=== PATIENT | male | born 1950 | race African-American/Black ===

== ENCOUNTER 2017-11-23 18:00 | Emergency (ER) | payer SELFPAY ==
[~2017-11-23] VITALS: Ht 177.8 cm; Wt 79.0 kg
[2017-11-23] MEDS ORDERED: SODIUM CHLORIDE 0.9% 1,000 ML IV ONE ×2 (18:44→19:54)
[2017-11-23 19:25] LABS: BASOPHILS % 0.4 % (0.0-2.0); HEMATOCRIT. 41.1 % (42.0-52.0); LYMPHOCYTES % 17.8 % (20.0-50.0); MEAN CORPUSCULAR HEMOGLOBIN 30.4 pg (28.0-32.0); MEAN PLATELET VOLUME 8.2 fl (7.4-10.4); MONOCYTES % 8.1 % (2.0-8.0); NEUTROPHILS % 72.7 % (40.0-76.0); PLATELET 203 x1000/uL (130-400); RED BLOOD CELL COUNT 4.62 mill/uL (4.7-6.1)
[2017-11-23 19:31] LABS: PROTHROMBIN TIME 10.3 sec (9.1-11.1)
[2017-11-23 19:33] LABS: CHLORIDE 104 mEq/L (98-107)
[2017-11-23 19:41] LABS: ETHANOL BLOOD < 10 mg/dL
[2017-11-23] MEDS ORDERED: ASPIRIN 325MG TABLET PO ONE (20:00)
[2017-11-23 21:59] VITALS: BP 113/69
[2017-11-23] MEDS ORDERED: SODIUM CHLORIDE 0.9% 1,000 ML IV SCH (23:57)
[2017-11-24] MEDS ORDERED: ACETAMINOPHEN 325MG TABLET PO PRN
[2017-11-24] MEDS ORDERED: GUAIFENESIN 200MG/10ML SUGAR FREE UDC PO PRN
[2017-11-24] MEDS ORDERED: NA PHOS,M-B/NA PHOS,DI-BA ENEMA 118ML PR PRN
[2017-11-24] MEDS ORDERED: HYDROCODONE/ACETAMINOPHEN 5/325MG TABLET PO PRN
[2017-11-24] MEDS ORDERED: CLONIDINE 0.1MG TABLET PO PRN
[2017-11-24] MEDS ORDERED: ONDANSETRON HCL 4MG/2ML VIAL IV PRN
[2017-11-24] MEDS ORDERED: ACETAMINOPHEN 650MG/20.3ML UDC GT PRN
[2017-11-24] MEDS ORDERED: ACETAMINOPHEN 650MG SUPP PR PRN
[2017-11-24] MEDS ORDERED: DIPHENHYDRAMINE 50MG/ML VIAL IV PRN
[2017-11-24] MEDS ORDERED: IPRATROPIUM/ALBUTEROL 0.5-3(2.5)MG/3ML NEB INH PRN
[2017-11-24] MEDS ORDERED: DOCUSATE SODIUM 100MG CAPSULE PO PRN
[2017-11-24] MEDS ORDERED: MAGNESIUM/ALUMINUM HYDROXIDE/SIMETHICONE 30ML UDC PO PRN ×2
[2017-11-24] MEDS ORDERED: SODIUM CHLORIDE 0.9% INJ 3ML FLUSH IVF SCH (06:00)
== END 2017-11-23 22:05 | disposition left against medical advice (07) ==
LOC: ER 18:00 → EDBEDREQ 20:08 → EDBEDREQTM 20:08 → ENRESERV 20:47 → ER 22:05 → CANBEDREQ 11-24 11:38
DX: E86.0 Dehydration (principal); R55 Syncope and collapse; I24.9 Acute ischemic heart disease, unspecified; I25.10 Atherosclerotic heart disease of native coronary artery without angina pectoris; I10 Essential (primary) hypertension; F17.200 Nicotine dependence, unspecified, uncomplicated; Z95.5 Presence of coronary angioplasty implant and graft
CPT/HCPCS: 36415; 70450; 71045; 80053; 80061; 82962; 83036; 83605; 84484; 85025; 85610; 86850; 86900; 86901; 93005; 99285; G0482; J7030; Z7610

== ENCOUNTER 2018-03-31 04:54 | Inpatient (IN) | payer MEDICARE ==
[~2018-03-31] VITALS: Ht 180.3 cm; Wt 69.9 kg
[2018-03-31] MEDS ORDERED: ALBUTEROL (0.083%) 2.5MG/3ML NEB HHN STA (05:00)
[2018-03-31] MEDS ORDERED: METHYLPREDNISOLONE SOD SUCC 125 MG/2 ML VIAL IV STA (05:00)
[2018-03-31] MEDS ORDERED: IPRATROPIUM BROMIDE (0.02%) 0.5MG/2.5ML NEB HHN STA (05:00)
[2018-03-31] MEDS ORDERED: AZITHROMYCIN 500 MG in DEXT 5% WATER 250 ML IV SCH (05:45)
[2018-03-31] MEDS ORDERED: CEFTRIAXONE 1 G PREMIX 50 ML IV ONE (05:45)
[2018-03-31 05:54] LABS: HEMATOCRIT 44.9 % (42.0-52.0); HEMOGLOBIN 15.1 g/dL (14.0-18.0); MEAN CORPUSCULAR HEMOGLOBIN 30.1 pg (28.0-32.0); MEAN CORPUSCULAR VOLUME 89.5 fL (80.0-94.0); PLATELET 269 x1000/uL (130-400); RED BLOOD CELL COUNT 5.01 mill/uL (4.7-6.1)
[2018-03-31 06:50] LABS: CHLORIDE 109 mEq/L (98-107)
[2018-03-31 15:27] VITALS: BP 158/115
[2018-03-31] MEDS ORDERED: AMLO5TAB88 MT (15:45)
[2018-03-31] MEDS ORDERED: ONDANSETRON HCL 4MG/2ML INJ IV PRN (16:15)
[2018-03-31] MEDS ORDERED: ACETAMINOPHEN 325MG TABLET PO PRN (16:15)
[2018-03-31] MEDS ORDERED: NITROGLYCERIN 0.4MG TABLET SL SL PRN (16:15)
[2018-03-31] MEDS ORDERED: MAGNESIUM/ALUMINUM HYDROXIDE/SIMETHICONE 30ML UDC PO PRN (16:15)
[2018-03-31] MEDS ORDERED: GUAIFENESIN 200MG/10ML SUGAR FREE UDC PO PRN (16:15)
[2018-03-31] MEDS ORDERED: LORAZEPAM 0.5MG TABLET PO PRN (16:15)
[2018-03-31] MEDS ORDERED: IPRATROPIUM/ALBUTEROL 0.5-3(2.5)MG/3ML NEB INH PRN (16:15)
[2018-03-31] MEDS ORDERED: KETOROLAC 15MG/ML VIAL IV PRN (16:27)
[2018-03-31] MEDS ORDERED: TRAMADOL 50MG TABLET PO PRN (16:30)
[2018-03-31] MEDS: CARVEDILOL 3.125 MG TABLET PO SCH (17:44)
[2018-03-31] MEDS: ENOXAPARIN 40MG/0.4ML SYR SUBCUT SCH (17:45)
[2018-03-31 20:00] VITALS: BP 157/115
[2018-03-31] MEDS: ASCORBIC ACID 500 MG TABLET PO SCH (20:59)
[2018-03-31] MEDS: FAMOTIDINE 20MG TABLET PO SCH (20:59)
[2018-03-31] MEDS: GUAIFENESIN/DM 600MG/30MG ER TAB 12HR PO SCH (20:59)
[2018-03-31] MEDS ORDERED: NA PHOS,M-B/NA PHOS,DI-BA ENEMA 118ML PR PRN (21:00)
[2018-03-31] MEDS ORDERED: ZOLPIDEM TARTRATE 5MG TABLET PO PRN (21:00)
[2018-03-31] MEDS: CLONIDINE 0.1MG TABLET PO PRN (21:00)
[2018-04-01] VITALS (10 sets, daily range): BP systolic 130–156; BP diastolic 68–126
[2018-04-01] MEDS: CEFTRIAXONE 1 G PREMIX 50 ML IV SCH (05:10)
[2018-04-01] MEDS: CLONIDINE 0.1MG TABLET PO PRN ×2 (05:10→12:53)
[2018-04-01] MEDS: CARVEDILOL 3.125 MG TABLET PO SCH ×2 (06:12→17:37)
[2018-04-01 06:39] LABS: CREATINE KINASE MB FRACTION 1.9 ng/mL (0.5-3.6)
[2018-04-01] MEDS ORDERED: AZITHROMYCIN 500 MG in DEXT 5% WATER 250 ML IV SCH (07:00)
[2018-04-01] MEDS: IPRATROPIUM/ALBUTEROL 0.5-3(2.5)MG/3ML NEB HHN SCH ×4 (08:38→21:12)
[2018-04-01] MEDS: ASCORBIC ACID 500 MG TABLET PO SCH ×2 (08:57→20:45)
[2018-04-01] MEDS: GUAIFENESIN/DM 600MG/30MG ER TAB 12HR PO SCH ×2 (08:57→20:45)
[2018-04-01] MEDS: FAMOTIDINE 20MG TABLET PO SCH (08:57)
[2018-04-01] MEDS: ZINC SULFATE 220 MG ( 50 ) CAPSULE PO SCH (08:57)
[2018-04-01] MEDS: ASPIRIN 325MG EC TABLET PO SCH (08:57)
[2018-04-01] MEDS ORDERED: CEFTRIAXONE 1 G PREMIX 50 ML IV SCH (09:00)
[2018-04-01] MEDS ORDERED: POTASSIUM CHLORIDE 20MEQ TABLET SR PO SCH (12:45)
[2018-04-01] MEDS: AMLODIPINE 2.5MG TABLET PO SCH ×2 (13:05→20:45)
[2018-04-01] MEDS: LOSARTAN POTASSIUM 25 MG TABLET PO SCH (13:05)
[2018-04-01] MEDS: FUROSEMIDE 40MG/4ML VIAL IVP SCH ×2 (13:05→20:45)
[2018-04-01] MEDS: ENOXAPARIN 40MG/0.4ML SYR SUBCUT SCH (18:00)
[2018-04-01 18:25] LABS: *AMPHETAMINES SCREEN URINE NEGATIVE (NEGATIVE); *BARBITURATES SCREEN URINE NEGATIVE (NEGATIVE); *BENZODIAZEPINES SCREEN URINE NEGATIVE (NEGATIVE); *COCAINE SCREEN URINE NEGATIVE (NEGATIVE); CANNABINOID URINE SCREEN NEGATIVE (NEGATIVE); OPIATES URINE SCREEN NEGATIVE (NEGATIVE); PHENCYCLIDINE URINE SCREEN NEGATIVE (NEGATIVE)
[2018-04-01 18:26] LABS: METHADONE URINE SCREEN NEGATIVE (NEGATIVE)
[2018-04-01 20:49] LABS: HEPATITIS B SURFACE ANTIGEN NEGATIVE
[2018-04-01] MEDS: BUDESONIDE 0.5MG/2ML NEB HHN SCH (21:11)
[2018-04-01 21:18] LABS: HEPATITIS A AB IGM NEGATIVE (NEGATIVE)
[2018-04-02] VITALS (7 sets, daily range): BP systolic 115–150; BP diastolic 95–106
[2018-04-02] MEDS: CLONIDINE 0.1MG TABLET PO PRN ×2 (00:28→06:41)
[2018-04-02] MEDS: IPRATROPIUM/ALBUTEROL 0.5-3(2.5)MG/3ML NEB HHN SCH ×6 (01:45→20:46)
[2018-04-02] MEDS: CARVEDILOL 3.125 MG TABLET PO SCH ×2 (05:11→17:31)
[2018-04-02] MEDS: CEFTRIAXONE 1 G PREMIX 50 ML IV SCH (05:11)
[2018-04-02] MEDS: AZITHROMYCIN 500 MG in DEXT 5% WATER 250 ML IV SCH (06:03)
[2018-04-02 07:41] LABS: BASOPHILS % 0.5 % (0.0-2.0); EOSINOPHILS % 1.5 % (0.0-5.0); HEMATOCRIT. 41.1 % (42.0-52.0); HEMOGLOBIN. 13.8 g/dL (14.0-18.0); LYMPHOCYTES % 36.8 % (20.0-50.0); MEAN CORPUSCULAR HEMOGLOBIN 29.7 pg (28.0-32.0); MEAN CORPUSCULAR VOLUME 88.7 fL (80.0-94.0); MONOCYTES % 6.5 % (2.0-8.0); NEUTROPHILS % 54.7 % (40.0-76.0); PLATELET 185 x1000/uL (130-400); RED BLOOD CELL COUNT 4.64 mill/uL (4.7-6.1); RED CELL DISTRIBUTION WIDTH 13.8 % (11.6-14.6)
[2018-04-02 07:54] LABS: CHLORIDE 111 mEq/L (98-107)
[2018-04-02 08:06] LABS: CREATINE KINASE 92 IU/L (39-308); CREATINE KINASE MB FRACTION 1.8 ng/mL (0.5-3.6); LDL CHOLESTEROL 91 mg/dL (5-100)
[2018-04-02 08:07] LABS: HDL CHOLESTEROL 55 mg/dL (40-59)
[2018-04-02] MEDS: BUDESONIDE 0.5MG/2ML NEB HHN SCH ×2 (08:55→20:51)
[2018-04-02] MEDS: FUROSEMIDE 40MG/4ML VIAL IVP SCH ×2 (09:43→17:31)
[2018-04-02] MEDS: ZINC SULFATE 220 MG ( 50 ) CAPSULE PO SCH (13:20)
[2018-04-02] MEDS: ASPIRIN 325MG EC TABLET PO SCH (13:21)
[2018-04-02] MEDS: AMLODIPINE 2.5MG TABLET PO SCH ×2 (13:21→20:02)
[2018-04-02] MEDS: FAMOTIDINE 20MG TABLET PO SCH (13:21)
[2018-04-02] MEDS: GUAIFENESIN/DM 600MG/30MG ER TAB 12HR PO SCH ×2 (13:21→20:02)
[2018-04-02] MEDS: LOSARTAN POTASSIUM 25 MG TABLET PO SCH (13:21)
[2018-04-02] MEDS: ASCORBIC ACID 500 MG TABLET PO SCH ×2 (13:21→20:01)
[2018-04-02] MEDS ORDERED: POTASSIUM CHLORIDE 20MEQ TABLET SR PO NR (14:30)
[2018-04-02] MEDS: ENOXAPARIN 40MG/0.4ML SYR SUBCUT SCH (17:55)
[2018-04-02] MEDS ORDERED: DIATR MEGLU/DIATRIZOATE SOLN 30ML PO SCH (19:00)
[2018-04-03] VITALS: BP 112/80
[2018-04-03] MEDS: IPRATROPIUM/ALBUTEROL 0.5-3(2.5)MG/3ML NEB HHN SCH ×6 (00:58→20:27)
[2018-04-03 04:00] VITALS: BP 132/85
[2018-04-03 05:54] LABS: BASOPHILS % 0.6 % (0.0-2.0); HEMATOCRIT. 41.2 % (42.0-52.0); HEMOGLOBIN. 13.8 g/dL (14.0-18.0); LYMPHOCYTES % 39.3 % (20.0-50.0); MEAN CORPUSCULAR HEMOGLOBIN 29.8 pg (28.0-32.0); MEAN CORPUSCULAR VOLUME 88.7 fL (80.0-94.0); MEAN PLATELET VOLUME 10.2 fl (7.4-10.4); MONOCYTES % 6.7 % (2.0-8.0); NEUTROPHILS % 51.4 % (40.0-76.0); PLATELET 190 x1000/uL (130-400); RED BLOOD CELL COUNT 4.64 mill/uL (4.7-6.1); RED CELL DISTRIBUTION WIDTH 13.6 % (11.6-14.6)
[2018-04-03 06:15] LABS: CHLORIDE 110 mEq/L (98-107)
[2018-04-03 06:22] LABS: PHOSPHORUS 3.8 mg/dL (2.5-4.9)
[2018-04-03 06:24] LABS: CREATINE KINASE 74 IU/L (39-308)
[2018-04-03 06:29] LABS: CREATINE KINASE MB FRACTION < 1.0 ng/mL (0.5-3.6)
[2018-04-03] MEDS: CEFTRIAXONE 1 G PREMIX 50 ML IV SCH (06:32)
[2018-04-03] MEDS: AZITHROMYCIN 500 MG in DEXT 5% WATER 250 ML IV SCH (06:32)
[2018-04-03] MEDS: CARVEDILOL 3.125 MG TABLET PO SCH ×2 (06:33→17:20)
[2018-04-03] MEDS: BUDESONIDE 0.5MG/2ML NEB HHN SCH ×2 (07:36→20:28)
[2018-04-03 08:00] VITALS: BP 103/78
[2018-04-03] MEDS ORDERED: POTASSIUM CHLORIDE 20MEQ TABLET SR PO SCH (09:00)
[2018-04-03] MEDS: ASCORBIC ACID 500 MG TABLET PO SCH ×2 (09:43→21:10)
[2018-04-03] MEDS: ASPIRIN 325MG EC TABLET PO SCH (09:43)
[2018-04-03] MEDS: AMLODIPINE 2.5MG TABLET PO SCH (09:43)
[2018-04-03] MEDS: DOCUSATE SODIUM 100MG CAPSULE PO PRN (09:43)
[2018-04-03] MEDS: ZINC SULFATE 220 MG ( 50 ) CAPSULE PO SCH (09:44)
[2018-04-03] MEDS: FAMOTIDINE 20MG TABLET PO SCH (09:44)
[2018-04-03] MEDS: FUROSEMIDE 40MG/4ML VIAL IVP SCH (09:44)
[2018-04-03] MEDS: GUAIFENESIN/DM 600MG/30MG ER TAB 12HR PO SCH ×2 (09:59→21:10)
[2018-04-03] MEDS ORDERED: POTASSIUM CHLORIDE 20MEQ TABLET SR PO NR (11:00)
[2018-04-03 12:00] VITALS: BP 118/83
[2018-04-03 16:45] VITALS: BP 125/89
[2018-04-03] MEDS: ENOXAPARIN 40MG/0.4ML SYR SUBCUT SCH ×3 (17:20→18:00)
[2018-04-03 20:25] VITALS: BP 149/77
[2018-04-04] VITALS (8 sets, daily range): BP systolic 104–143; BP diastolic 17–105
[2018-04-04] MEDS: IPRATROPIUM/ALBUTEROL 0.5-3(2.5)MG/3ML NEB HHN SCH ×4 (02:00→20:28)
[2018-04-04] MEDS: CEFTRIAXONE 1 G PREMIX 50 ML IV SCH (05:02)
[2018-04-04] MEDS: CARVEDILOL 3.125 MG TABLET PO SCH ×2 (05:04→17:18)
[2018-04-04] MEDS: AZITHROMYCIN 500 MG in DEXT 5% WATER 250 ML IV SCH (06:20)
[2018-04-04 07:11] LABS: BASOPHILS % 0.6 % (0.0-2.0); EOSINOPHILS % 3.4 % (0.0-5.0); HEMATOCRIT. 41.2 % (42.0-52.0); LYMPHOCYTES % 43.6 % (20.0-50.0); MEAN CORPUSCULAR HEMOGLOBIN 30.3 pg (28.0-32.0); MEAN CORPUSCULAR VOLUME 88.9 fL (80.0-94.0); MEAN PLATELET VOLUME 10.2 fl (7.4-10.4); MONOCYTES % 6.7 % (2.0-8.0); NEUTROPHILS % 45.7 % (40.0-76.0); PLATELET 187 x1000/uL (130-400); RED BLOOD CELL COUNT 4.63 mill/uL (4.7-6.1); RED CELL DISTRIBUTION WIDTH 14.1 % (11.6-14.6)
[2018-04-04] MEDS: SODIUM CHLORIDE 0.45% 1,000 ML IV SCH ×2 (08:00→21:20)
[2018-04-04] MEDS: BUDESONIDE 0.5MG/2ML NEB HHN SCH ×2 (08:06→20:28)
[2018-04-04] MEDS ORDERED: AMLODIPINE 2.5MG TABLET PO SCH (09:00)
[2018-04-04] MEDS: FAMOTIDINE 20MG TABLET PO SCH (09:32)
[2018-04-04] MEDS: ZINC SULFATE 220 MG ( 50 ) CAPSULE PO SCH (09:32)
[2018-04-04] MEDS: ASPIRIN 325MG EC TABLET PO SCH (09:32)
[2018-04-04] MEDS: ASCORBIC ACID 500 MG TABLET PO SCH ×2 (09:34→21:29)
[2018-04-04] MEDS: DOCUSATE SODIUM 100MG CAPSULE PO PRN (09:34)
[2018-04-04] MEDS: GUAIFENESIN/DM 600MG/30MG ER TAB 12HR PO SCH ×2 (09:41→21:30)
[2018-04-04] MEDS ORDERED: HEPARIN SODIUM 1,000 UNIT/1ML VIAL IV ONE (11:57)
[2018-04-04] MEDS ORDERED: IODIXANOL 320MG/ML 100 ML BOTTLE IV ONE (12:15)
[2018-04-04] MEDS ORDERED: LIDOCAINE HCL 1% 20ML VIAL (Pyxis) INJ ONE (12:15)
[2018-04-04] MEDS ORDERED: NICARDIPINE 100MCG/ML 10ML VIAL (CATH LAB) IV ONE (12:25)
[2018-04-04] MEDS ORDERED: NITROGLYCERIN 50MCG/ML 10ML VIAL (CATH LAB) IV ONE (12:25)
[2018-04-04] MEDS ORDERED: MIDAZOLAM HCL 2 MG/2 ML VIAL ONE (12:42)
[2018-04-04] MEDS ORDERED: FENTANYL CITRATE/PF 50MCG/ML 2ML VIAL ONE (12:42)
[2018-04-04] MEDS ORDERED: IOHEXOL-300 100 ML BOTTLE ONE (13:01)
[2018-04-04] MEDS ORDERED: CLOPIDOGREL 75MG TABLET ONE (13:15)
[2018-04-04] MEDS ORDERED: SODIUM CHLORIDE 0.45% 1,000 ML IV SCH (13:30)
[2018-04-04] MEDS ORDERED: ACETAMINOPHEN 325MG TABLET PO PRN (13:30)
[2018-04-04] MEDS ORDERED: ATROPINE SULFATE 1MG/10ML SYR IV PRN (13:30)
[2018-04-04] MEDS ORDERED: CLOPIDOGREL 75MG TABLET PO SCH (13:30)
[2018-04-04] MEDS ORDERED: MORPHINE SULFATE 2 MG/ML CPJ (NOT FOR IM USE) IV PRN (13:30)
[2018-04-04] MEDS: ENOXAPARIN 40MG/0.4ML SYR SUBCUT SCH (15:35)
[2018-04-05] VITALS: BP 142/90
[2018-04-05] MEDS: CLONIDINE 0.1MG TABLET PO PRN (00:09)
[2018-04-05] MEDS: IPRATROPIUM/ALBUTEROL 0.5-3(2.5)MG/3ML NEB HHN SCH ×4 (00:33→12:03)
[2018-04-05 02:00] VITALS: BP 128/53
[2018-04-05 04:00] VITALS: BP 112/84
[2018-04-05 06:00] VITALS: BP 142/104
[2018-04-05] MEDS: CARVEDILOL 3.125 MG TABLET PO SCH (06:14)
[2018-04-05] MEDS: CEFTRIAXONE 1 G PREMIX 50 ML IV SCH (06:15)
[2018-04-05] MEDS: AZITHROMYCIN 500 MG in DEXT 5% WATER 250 ML IV SCH (06:15)
[2018-04-05 06:51] LABS: BASOPHILS % 0.4 % (0.0-2.0); EOSINOPHILS % 3.2 % (0.0-5.0); LYMPHOCYTES % 37.9 % (20.0-50.0); MEAN CORPUSCULAR VOLUME 88.2 fL (80.0-94.0); MEAN PLATELET VOLUME 10.2 fl (7.4-10.4); MONOCYTES % 6.2 % (2.0-8.0); NEUTROPHILS % 52.3 % (40.0-76.0); PLATELET 185 x1000/uL (130-400); RED BLOOD CELL COUNT 4.66 mill/uL (4.7-6.1); RED CELL DISTRIBUTION WIDTH 13.8 % (11.6-14.6)
[2018-04-05 07:18] LABS: PHOSPHORUS 3.3 mg/dL (2.5-4.9)
[2018-04-05 08:00] VITALS: BP 128/85
[2018-04-05] MEDS: GUAIFENESIN/DM 600MG/30MG ER TAB 12HR PO SCH (08:00)
[2018-04-05] MEDS ORDERED: ASPIRIN 325MG TABLET PO SCH (09:00)
[2018-04-05] MEDS ORDERED: AMLODIPINE 5MG TABLET PO SCH (09:00)
[2018-04-05] MEDS ORDERED: CLOPIDOGREL 75MG TABLET PO SCH (09:00)
[2018-04-05] MEDS: FAMOTIDINE 20MG TABLET PO SCH (09:37)
[2018-04-05] MEDS: ASCORBIC ACID 500 MG TABLET PO SCH (09:38)
[2018-04-05] MEDS: ASPIRIN 325MG EC TABLET PO SCH (09:38)
[2018-04-05] MEDS: ZINC SULFATE 220 MG ( 50 ) CAPSULE PO SCH (09:38)
[2018-04-05] MEDS: SODIUM CHLORIDE 0.45% 1,000 ML IV SCH (09:40)
[2018-04-05 10:31] VITALS: BP 120/77
[2018-04-06] MEDS ORDERED: AMLODIPINE 10MG TABLET PO SCH (09:00)
== END 2018-04-05 14:03 | disposition home health service (06) | DRG 246 ==
LOC: ER 04:54 → 6WST 06:30 → EDBEDREQSVC 06:34 → EDBEDREQTM 06:34 → ENRESERV 12:45 → EDBEDREQ 13:15 → SUPCPDRO 16:08 → 3WST 04-04 13:58
PROVIDERS: ADMIT Internal Medicine; ATTEND Internal Medicine
PROC: 027034Z Dilation of Coronary Artery, One Artery with Drug-eluting Intraluminal Device, Percutaneous Approach (ICD-10-PCS; principal; 2018-04-04)
PROC: B2111ZZ Fluoroscopy of Multiple Coronary Arteries using Low Osmolar Contrast (ICD-10-PCS; 2018-04-04)
PROC: 4A023N7 Measurement of Cardiac Sampling and Pressure, Left Heart, Percutaneous Approach (ICD-10-PCS; 2018-04-04)
DX: T82.855A Stenosis of coronary artery stent, initial encounter (principal); J96.01 Acute respiratory failure with hypoxia; N17.0 Acute kidney failure with tubular necrosis; J18.9 Pneumonia, unspecified organism; I50.43 Acute on chronic combined systolic (congestive) and diastolic (congestive) heart failure; J44.1 Chronic obstructive pulmonary disease with (acute) exacerbation; I13.0 Hypertensive heart and chronic kidney disease with heart failure and stage 1 through stage 4 chronic kidney disease, or unspecified chronic kidney disease; I45.2 Bifascicular block; E44.0 Moderate protein-calorie malnutrition; J44.0 Chronic obstructive pulmonary disease with (acute) lower respiratory infection; I42.0 Dilated cardiomyopathy; I25.10 Atherosclerotic heart disease of native coronary artery without angina pectoris; K76.89 Other specified diseases of liver; D64.9 Anemia, unspecified; E78.00 Pure hypercholesterolemia, unspecified; I25.5 Ischemic cardiomyopathy; N18.3 Chronic kidney disease, stage 3 (moderate); N28.1 Cyst of kidney, acquired; F17.210 Nicotine dependence, cigarettes, uncomplicated; Y83.1 Surgical operation with implant of artificial internal device as the cause of abnormal reaction of the patient, or of later complication, without mention of misadventure at the time of the procedure; Y92.89 Other specified places as the place of occurrence of the external cause; Z79.82 Long term (current) use of aspirin; Z79.899 Other long term (current) drug therapy; Z80.8 Family history of malignant neoplasm of other organs or systems; Z82.49 Family history of ischemic heart disease and other diseases of the circulatory system; Z88.0 Allergy status to penicillin; Z71.6 Tobacco abuse counseling; Z68.21 Body mass index [BMI] 21.0-21.9, adult; F12.90 Cannabis use, unspecified, uncomplicated
CPT/HCPCS: 36415; 71045; 74176; 76700; 78582; 80048; 80061; 80305; 82105; 82550; 82553; 83036; 83735; 83880; 84100; 84443; 84484; 85027; 85347; 85379; 86705; 86709; 86803; 87340; 92928; 93005; 93306; 93458; 93970; 94640; 94644; 96365; 96375; 97161; 97165; 99291; A9558; C1725; C1769; C1874; C1887; C1893; J0456; J0696; J1644; J1650; J1940; J2250; J2930; J3010; J3490; J7040; J7050; J7060; J7611; J7620; J7626; Q9963; Q9967

== ENCOUNTER 2018-05-23 08:53 | Inpatient (IN) | payer MEDICARE ==
[~2018-05-23] VITALS: Ht 182.9 cm; Wt 70.3 kg
[~2018-05-23 08:53] MED LIST: AMLO5TAB88 MT
[2018-05-23] MEDS ORDERED: ONDANSETRON HCL 4MG/2ML INJ IV STA (10:44)
[2018-05-23] MEDS ORDERED: MORPHINE SULFATE 4 MG/ML CPJ (NOT FOR IM USE) IV STA (10:44)
[2018-05-23] MEDS ORDERED: SODIUM CHLORIDE 0.9% 1,000 ML IV ONE (10:44)
[2018-05-23] MEDS ORDERED: ASPIRIN 325MG EC TABLET PO ONE (10:45)
[2018-05-23 11:08] LABS: BASOPHILS % 0.4 % (0.0-2.0); EOSINOPHILS % 1.3 % (0.0-5.0); HEMATOCRIT. 41.1 % (42.0-52.0); HEMOGLOBIN. 13.8 g/dL (14.0-18.0); LYMPHOCYTES % 29.9 % (20.0-50.0); MEAN CORPUSCULAR VOLUME 89.3 fL (80.0-94.0); MEAN PLATELET VOLUME 9.7 fl (7.4-10.4); MONOCYTES % 6.5 % (2.0-8.0); NEUTROPHILS % 61.9 % (40.0-76.0); PLATELET 258 x1000/uL (130-400); RED BLOOD CELL COUNT 4.61 mill/uL (4.7-6.1); RED CELL DISTRIBUTION WIDTH 15.2 % (11.6-14.6)
[2018-05-23 11:11] LABS: INR 1.1; PROTHROMBIN TIME 10.7 sec (9.1-11.1)
[2018-05-23 11:23] LABS: CHLORIDE 110 mEq/L (98-107)
[2018-05-23] MEDS ORDERED: LEVOFLOXACIN 750MG PREMIX 150 ML IV ONE (11:30)
[2018-05-23] MEDS ORDERED: FUROSEMIDE 40MG/4ML VIAL IVP ONE (12:15)
[2018-05-23] MEDS ORDERED: NITROGLYCERIN OINT 1GM/INCH UDPKT TD ONE (12:15)
[2018-05-23] MEDS ORDERED: IPRATROPIUM/ALBUTEROL 0.5-3(2.5)MG/3ML NEB INH PRN (14:15)
[2018-05-23] MEDS ORDERED: LORAZEPAM 2MG/ML CPJ IV PRN (14:15)
[2018-05-23] MEDS ORDERED: GUAIFENESIN 200MG/10ML SUGAR FREE UDC PO PRN (14:15)
[2018-05-23] MEDS ORDERED: MAGNESIUM/ALUMINUM HYDROXIDE/SIMETHICONE 30ML UDC PO PRN (14:15)
[2018-05-23] MEDS ORDERED: ACETAMINOPHEN 325MG TABLET PO PRN (14:15)
[2018-05-23] MEDS ORDERED: DOCUSATE SODIUM 100MG CAPSULE PO PRN (14:15)
[2018-05-23] MEDS ORDERED: DIPHENHYDRAMINE 50MG/ML VIAL IV PRN (14:15)
[2018-05-23 15:30] VITALS: BP 129/92
[2018-05-23 16:00] VITALS: BP 129/92
[2018-05-23] MEDS: AMLODIPINE 5MG TABLET PO SCH (17:19)
[2018-05-23 20:00] VITALS: BP 112/80
[2018-05-24] VITALS: BP 102/69
[2018-05-24 04:00] VITALS: BP_SYST 116; BP_SYST 117; BP_DIAS 75; BP_DIAS 80
[2018-05-24 07:19] LABS: BASOPHILS % 0.4 % (0.0-2.0); EOSINOPHILS % 1.8 % (0.0-5.0); HEMATOCRIT. 36.1 % (42.0-52.0); HEMOGLOBIN. 12.2 g/dL (14.0-18.0); LYMPHOCYTES % 34.2 % (20.0-50.0); MEAN CORPUSCULAR HEMOGLOBIN 29.9 pg (28.0-32.0); MEAN CORPUSCULAR VOLUME 88.5 fL (80.0-94.0); MEAN PLATELET VOLUME 9.4 fl (7.4-10.4); NEUTROPHILS % 55.6 % (40.0-76.0); PLATELET 231 x1000/uL (130-400); RED BLOOD CELL COUNT 4.08 mill/uL (4.7-6.1); RED CELL DISTRIBUTION WIDTH 14.9 % (11.6-14.6)
[2018-05-24 07:41] LABS: CHLORIDE 110 mEq/L (98-107)
[2018-05-24 08:00] VITALS: BP 136/95
[2018-05-24] MEDS: AMLODIPINE 5MG TABLET PO SCH (08:51)
[2018-05-24] MEDS: LEVOFLOXACIN 500MG TABLET PO SCH (10:46)
[2018-05-24 12:00] VITALS: BP 138/100
[2018-05-24 12:02] LABS: BG BASE EXCESS -0.1 mmol/L (-2.0-2.0); BG CARBOXYHEMOGLOBIN 1.3 % (0.5-1.5); BG FRACTION INSPIRED OXYGEN 21; BG HCO3 ACT 22.2 mmol/L (22.0-26.0); BG METHEMOGLOBIN 0.2 % (0.0-1.5); BG OXYGEN SATURATION 93.9 % (92.0-98.5); BG OXYHEMOGLOBIN 92.5 % (94.0-97.0); BG PCO2 29.7 mmHg (35.0-45.0); BG PH 7.491 (7.350-7.450); BG PO2 67.1 mmHg (75.0-100.0); BG SAMPLE SITE RIGHT BRACHIAL; BG TOTAL HEMOGLOBIN 13.4 g/dL (12.0-18.0); BG VENT MODE ROOM AIR
[2018-05-24] MEDS ORDERED: BUDESONIDE 0.5MG/2ML NEB HHN NR (12:30)
[2018-05-24] MEDS ORDERED: IOHEXOL-350 100 ML BOTTLE ONE (14:51)
[2018-05-24 16:00] VITALS: BP 122/87
[2018-05-24] MEDS: MONTELUKAST SODIUM 10MG TABLET PO SCH (16:55)
[2018-05-24] MEDS: IPRATROPIUM/ALBUTEROL 0.5-3(2.5)MG/3ML NEB HHN SCH ×2 (16:56→21:38)
[2018-05-24] MEDS ORDERED: MONTELUKAST SODIUM 10MG TABLET PO SCH (17:00)
[2018-05-24 19:21] LABS: CLARITY URINE CLEAR (CLEAR); COLOR URINE YELLOW (YELLOW); KETONES URINE NEGATIVE (NEGATIVE); LEUKOCYTE ESTERASE URINE NEGATIVE (NEGATIVE); NITRITE URINE NEGATIVE (NEGATIVE); OCCULT BLOOD URINE NEGATIVE (NEGATIVE); PH URINE 5.5 (4.5-8.0); PROTEIN URINE NEGATIVE (NEGATIVE); SPECIFIC GRAVITY URINE 1.021 (1.005-1.030); UROBILINOGEN URINE 0.2 E.U./dL (0.2-1.0)
[2018-05-24 19:37] LABS: *AMPHETAMINES SCREEN URINE NEGATIVE (NEGATIVE); *BARBITURATES SCREEN URINE NEGATIVE (NEGATIVE); *BENZODIAZEPINES SCREEN URINE NEGATIVE (NEGATIVE); *COCAINE SCREEN URINE PRESUMTIVE POSITIVE (NEGATIVE)
[2018-05-24 19:38] LABS: METHADONE URINE SCREEN NEGATIVE (NEGATIVE); OPIATES URINE SCREEN PRESUMTIVE POSITIVE (NEGATIVE); PHENCYCLIDINE URINE SCREEN NEGATIVE (NEGATIVE)
[2018-05-24 19:39] LABS: CANNABINOID URINE SCREEN PRESUMTIVE POSITIVE (NEGATIVE)
[2018-05-24 20:00] VITALS: BP 134/88
[2018-05-25] VITALS (8 sets, daily range): BP systolic 125–149; BP diastolic 85–101
[2018-05-25] MEDS: IPRATROPIUM/ALBUTEROL 0.5-3(2.5)MG/3ML NEB HHN SCH ×6 (01:07→21:44)
[2018-05-25] MEDS: CLONIDINE 0.1MG TABLET PO PRN ×2 (05:07→13:22)
[2018-05-25 06:50] LABS: BASOPHILS % 0.4 % (0.0-2.0); EOSINOPHILS % 1.2 % (0.0-5.0); HEMATOCRIT. 37.6 % (42.0-52.0); HEMOGLOBIN. 12.8 g/dL (14.0-18.0); LYMPHOCYTES % 34.9 % (20.0-50.0); MONOCYTES % 8.5 % (2.0-8.0); PLATELET 244 x1000/uL (130-400); RED BLOOD CELL COUNT 4.27 mill/uL (4.7-6.1); RED CELL DISTRIBUTION WIDTH 14.5 % (11.6-14.6)
[2018-05-25 07:13] LABS: CHLORIDE 111 mEq/L (98-107)
[2018-05-25] MEDS: BUDESONIDE 0.5MG/2ML NEB HHN SCH (08:23)
[2018-05-25] MEDS ORDERED: POTASSIUM CHLORIDE 20MEQ TABLET SR PO NR (09:45)
[2018-05-25] MEDS: LEVOFLOXACIN 500MG TABLET PO SCH (10:18)
[2018-05-25] MEDS: AMLODIPINE 5MG TABLET PO SCH (10:18)
[2018-05-25] MEDS ORDERED: PNEUMOCOCCAL 23-VAL P-SAC VAC 0.5 ML IM ONE (12:45)
[2018-05-25] MEDS: MONTELUKAST SODIUM 10MG TABLET PO SCH (16:55)
[2018-05-26] VITALS: BP 137/100
[2018-05-26] MEDS: IPRATROPIUM/ALBUTEROL 0.5-3(2.5)MG/3ML NEB HHN SCH ×4 (00:13→14:54)
[2018-05-26 04:00] VITALS: BP 142/111
[2018-05-26 07:46] LABS: CHLORIDE 113 mEq/L (98-107)
[2018-05-26 08:00] VITALS: BP 127/88
[2018-05-26] MEDS ORDERED: POTASSIUM CHLORIDE 20MEQ TABLET SR PO SCH (09:00)
[2018-05-26] MEDS: AMLODIPINE 5MG TABLET PO SCH (09:37)
[2018-05-26] MEDS: LEVOFLOXACIN 500MG TABLET PO SCH (09:37)
[2018-05-26] MEDS: BUDESONIDE 0.5MG/2ML NEB HHN SCH (10:13)
[2018-05-26 12:00] VITALS: BP 137/96
== END 2018-05-26 16:30 | disposition home or self-care (01) | DRG 190 ==
LOC: ER 08:53 → 5WST 13:11 → EDBEDREQ 13:11 → ENRESERV 13:46
PROVIDERS: ADMIT Internal Medicine Geriatric Medicine; ATTEND Internal Medicine Geriatric Medicine
DX: J44.0 Chronic obstructive pulmonary disease with (acute) lower respiratory infection (principal); J18.1 Lobar pneumonia, unspecified organism; E44.1 Mild protein-calorie malnutrition; J44.1 Chronic obstructive pulmonary disease with (acute) exacerbation; I50.9 Heart failure, unspecified; I11.0 Hypertensive heart disease with heart failure; D64.9 Anemia, unspecified; F19.10 Other psychoactive substance abuse, uncomplicated; I25.10 Atherosclerotic heart disease of native coronary artery without angina pectoris; E87.6 Hypokalemia; Z88.0 Allergy status to penicillin; Z68.21 Body mass index [BMI] 21.0-21.9, adult; Z87.891 Personal history of nicotine dependence; Z95.5 Presence of coronary angioplasty implant and graft
CPT/HCPCS: 36415; 36600; 71045; 71275; 80048; 80305; 82375; 82805; 83605; 83735; 83880; 84484; 90732; 93005; 93306; 93970; 94640; 96365; 96375; 99285; J1940; J1956; J2270; J2405; J7030; J7620; J7626; Q9967